=== PATIENT | male | born 2005 | race Two or more races ===

== ENCOUNTER 2024-10-12 11:43 | Emergency (ER) | payer MEDICAID, SELFPAY ==
[2024-10-12 11:51] VITALS: BP 120/64; PULSE 117; RESP 16; TEMP 37.4; O2SAT 98
--- NOTE | 2024-10-12 12:22 | XR_ITS ---
Examination: CT abdomen and pelvis without contrast. Coronal 3-D reconstructions. Sagittal 2-D reconstructions. Date and time of exam:October 12, 2024 1246 hours INDICATIONS: Left lower abdominal pain onset today CTDI: vol (mGy): 7.03 DLP: (mGycm): 447 Technique: Axial images of the abdomen have been obtained, 3 mm slice thickness Intravenous contrast material has not been administered. Low dose protocols were performed. One or more of the following dose reduction techniques were used; automated exposure control, adjustment of the mA and/or KV according to patient size, use of iterative reconstruction technique. Findings: No focal liver or splenic lesions No gallstones No pancreatic or adrenal mass No renal or ureteral calculi, no hydronephrosis Aorta normal size Normal appendix No bowel obstruction No diverticulitis Air fluid level above the urinary bladder which may be in a bowel loop, axial image 204 Bladder intact IMPRESSION: Recommend repeating the study with intravenous and oral contrast to assess air-fluid level posterior and above the urinary bladder on axial image 204, poorly visualized
--- NOTE | 2024-10-12 12:22 | PD.EDRME ---
Rapid Medical Screening Exam E Arrival date/time: 10/12/24 11:43 19-year-old male with no known medical history presents to the emergency room with a chief complaint of 8 out of 10 left lower quadrant abdominal pain and tenderness, diarrhea x 2 days I have greeted and performed a focused initial assessment of this patient. A comprehensive ED assessment and evaluation of the patient, analysis of all test results, and completion of the medical decision making process will be conducted by additional ED providers. Chief Complaint: Abdominal Pain Vital signs: Vital Signs Temperature 99.3 F 10/12/24 11:51 Pulse Rate 117 H 10/12/24 11:51 Respiratory Rate 16 10/12/24 11:51 Blood Pressure 120/64 10/12/24 11:51 Pulse Oximetry (%) 98 10/12/24 11:51 Oxygen Delivery Method Room Air 10/12/24 11:51 Vital signs reviewed by provider: Yes
[2024-10-12 12:24] VITALS: BMI 23.6
[2024-10-12 12:39] LABS: Basophils % (Auto) 0 % (0-2.5); Eosinophils % (Auto) 0 % (0-10); Hematocrit 45.9 % (41.0-53.0); Hemoglobin 15.8 g/dL (13.5-16.0); Immature Granulocytes % (Auto) 0 % (0-0); Immature Granulocytes Auto 0.04 Thou/mm3 (0.00-0.00); Lymphocytes # (Auto) 1.3 Thou/mm3 (1.0-4.8); Lymphocytes % (Auto) 12 % (10-50); Mean Corpuscular HGB Conc 34.4 g/dl (31.0-37.0); Mean Corpuscular Hemoglobin 29.3 pg (25.0-35.0); Mean Corpuscular Volume 85 fL (80-100); Monocytes # (Auto) 0.9 Thou/mm3 (0.0-0.8); Monocytes % (Auto) 8 % (0-12); Neutrophils # (Auto) 8.5 Thou/mm3 (1.8-7.7); Neutrophils % (Auto) 79 % (37-80); Nucleated Red Blood Cell % 0 /100 WBC (0); Platelet Count 308 Thou/mm3 (140-440); RDW Standard Deviation 36.8 fL (35.1-43.9); White Blood Count 10.7 Thou/mm3 (3.8-10.6)
[2024-10-12 13:09] LABS: Alanine Aminotransferase 8 U/L (10-49); Albumin/Globulin Ratio 1.6 (1.2-2.2); Alkaline Phosphatase 128 U/L (46-116); Anion Gap 8 (7-16); Aspartate Amino Transferase 12 U/L (0-34); BUN/Creatinine Ratio 15 Ratio (12-20); Bilirubin,Total 1.1 mg/dL (0.3-1.2); Blood Urea Nitrogen 16 mg/dL (9-23); Calcium 9.9 mg/dL (8.3-10.6); Calcium (Corrected) 9.9 mg/dL (8.5-10.1); Carbon Dioxide 26.3 mMol/L (20.0-31.0); Chloride 103 mMol/L (98-107); Creatinine (Component) 1.1 mg/dL (0.6-1.3); Estimated Creatinine Clearance 123.5 mL/min (>60); Globulin 3.2 gm/dL (2.3-3.5); Glucose 99 mg/dL (74-106); Lipase 38 U/L (12-53); Osmolality,Calculated 275 (275-295); Potassium 4.3 mMol/L (3.4-5.1); Sodium 137 mMol/L (136-145); Total Protein 8.2 gm/dL (5.7-8.2); eGFR > 60 See Note
[2024-10-12 14:38] LABS: Collection Type, Urine Clean Catch
[2024-10-12 14:48] LABS: Bacteria,Urine Rare; Bilirubin,Urine Negative (Negative); Blood,Urine Trace (Negative); Clarity,Urine Clear (Clear/Hazy); Color,Urine Yellow (Lt Yel-Yel); Glucose, Urine Negative (Negative); Ketones,Urine Negative (Negative); Leukocyte Esterase,Urine Negative (Negative); Nitrite,Urine Negative (Negative); Protein,Urine Trace (Neg - Trace); RBC,Urine 6 /hpf (0-3); Specific Gravity,Urine 1.035 (1.001-1.035); Squamous Epithelial Cell,Urine 1 /hpf (0-5); Urobilinogen,Urine Negative mg/dL (0.0-1.0); WBC,Urine 2 /hpf (0-5)
--- NOTE | 2024-10-12 15:56 | EDNOTE_ITS ---
ED General RME/HPI General Chief complaint: Abdominal Pain Stated complaint: ABDOMINAL PAIN X 0200AM Time Seen by Provider: 10/12/24 13:32 Arrival date/time: 10/12/24 11:43 CC: Abdominal pain HPI abrupt onset at 2 AM this morning just left of the umbilicus. The patient states he had multiple episodes of diarrhea from that point on until approximately 4 hours ago. Patient denies fever chills shortness of breath difficulty breathing headache nausea or vomiting. Patient states he has similar episode 1 month ago which spontaneously resolved and he was at the time waiting in the waiting ER and decided to leave because the spontaneous resolution. He says this episode was worse. RME / HPI RME / HPI narrative: 10/12/24 11:43 19-year-old male with no known medical history presents to the emergency room with a chief complaint of 8 out of 10 left lower quadrant abdominal pain and tenderness, diarrhea x 2 days I have greeted and performed a focused initial assessment of this patient. A comprehensive ED assessment and evaluation of the patient, analysis of all test results, and completion of the medical decision making process will be conducted by additional ED providers. Related Data Allergies Allergy/AdvReac Type Severity Reaction Status Date / Time No Known Allergies Allergy Verified 10/12/24 11:46 Review of Systems Review of Systems Narrative Review of Systems: GEN: No fever, no chills, no weight loss EYES: No discharge, no visual changes, no pain HEENT: No ear pain, no congestion, no sore throat PULM: No shortness of breath, no cough, no congestion CV: No chest pain, no dyspnea on exertion, no palpitations GI: No nausea, no vomiting, + diarrhea, + pain, no constipation : No frequency, no urgency, no dysuria MUSC/SKEL: No joint pain, no back pain SKIN: No rash PSYCH: No hallucinations, no depression HEME/LYMPH: No easy bleeding or bruising tendencies NEURO: No weakness, no headache ED Exam Narrative Physical exam: [General: Not in any acute distress Head normocephalic HEENT: Within acceptable limits Neck is supple nontender Chest equal chest rise nontender to palpation Respiratory: Clear to auscultation no wheezes crackles or rubs CV: Rate rhythm is regular no murmurs rubs or clicks Abdomen is soft nontender with deep palpation no reflexive guarding rebound tenderness in the periumbilical region left lower right lower or in the upper quadrants. No masses positive bowel sounds all 4 quadrants Back: No CVA tenderness no spinous process tenderness from cervical spine thoracic and lumbar spine Skin: Intact no petechiae rash induration ulceration or crepitus Extremities: Moving all extremity against resistance cap refill less than 2 seconds neurosensory intact Neuro: Awake alert oriented x3 Glascow coma 15 no focal deficits] Course Course Course Narrative: Patient's case discussed with Dr. Sy given prior to discharge Quality Measures VTE prophylaxis Orders Category Date Time Status CT abdomen pelvis wo con Stat Exams 10/12/24 12:22 Completed CBC Stat Lab 10/12/24 12:28 Completed CMP [Comprehensive Metabolic Panel] Stat Lab 10/12/24 12:28 Completed Lipase Stat Lab 10/12/24 12:28 Completed UA [Urinalysis] Stat Lab 10/12/24 14:29 Completed Urine Culture Stat Lab 10/12/24 14:29 Received HYDROcodone*/APAP 5/325 [[place] 5/325] Med 10/12/24 12:20 Discontinued 1 tab PO X1 ONE Vital Signs Vital signs: Vital Signs Temperature 99.3 F 10/12/24 11:51 Pulse Rate 117 H 10/12/24 11:51 Respiratory Rate 16 10/12/24 11:51 Blood Pressure 120/64 10/12/24 11:51 Pulse Oximetry (%) 98 10/12/24 11:51 Oxygen Delivery Method Room Air 10/12/24 11:51 [facility] Patient data External records reviewed:: [facility] previous records Clinical information provided by:: patient Social determinants that could affect healthcare access:: none Patient has the following chronic illnesses:: None How is presenting disease/condition affected by chronic disease/condition?: u neffected by Evaluation data The following diagnostics were reviewed and interpreted by me:: lab results and radiology exam(s) Lab and/or radiology exams considered but not ordered:: CBC shows no significant leukocytosis anemia thrombocytopenia CMP shows no significant electrolyte imbalances renal impairment transaminitis or T. bili elevation Urine is negative CT shows a possible air-fluid level above the bladder. Interpretation Summary: All symptoms have resolved the patient is not in any acute distress denies any fever chills shortness of breath laboratory results are wholly unremarkable. Patient has a benign abdominal exam few that the CT read is commiserate with patient's clinical presentation. Patient advised to follow-up with primary care return the emergency room if there are worsening symptoms Medications Medications considered but not ordered:: None Medication administrations:: Medication Administration History Discontinued Medications Hydrocodone Bitart/Acetaminophen (Hydrocodone/Apap 5/325 Tablet) 1 tab PO X1 ONE Stop: 10/12/24 12:21 Last Admin: 10/12/24 12:53 Dose: Not Given Documented By: GM Non-Admin Reason: Patient Refused None Consultations Consultation(s) initiated? (list below): No Diagnosis Differential Diagnosis ED Complaint MDM: Nausea vomiting diarrhea electrolyte imbalance Most likely diagnosis given after review of the tests above:: Nausea vomiting diarrhea Admission Indicated Admission indicated?: not indicated Explain why admission is indicated or not indicated:: None Admission Request Was there a request for admission?: No Disposition Plan Disposition Plan: Discharge Discharge Attestation Discharge Attestation: The patient and all family members were given an opportunity to ask questions and understood the discharge instructions. Discharge instructions specifically effects, indications for sooner follow up or return to the emergency department, and the expected course of current diagnosis. Patient condition: Stable Medical Decision Making Differential Diagnosis Differential Diagnosis: Nausea vomiting diarrhea electrolyte imbalance Lab Data 10/12/24 12:28 10/12/24 12:28 Labs: Lab Results 10/12/24 10/12/24 Range/Units 12:28 14:29 WBC 10.7 H (3.8-10.6) Thou/mm3 RBC 5.40 (4.50-5.90) Miln/mm3 Hgb 15.8 (13.5-16.0) g/dL Hct 45.9 (41.0-53.0) % MCV 85 (80-100) fL MCH 29.3 (25.0-35.0) pg MCHC 34.4 (31.0-37.0) g/dl RDW Std Deviation 36.8 (35.1-43.9) fL Plt Count 308 (140-440) Thou/mm3 Neut % (Auto) 79 (37-80) % Lymph % (Auto) 12 (10-50) % [place] % (Auto) 8 (0-12) % Eos % (Auto) 0 (0-10) % Baso % (Auto) 0 (0-2.5) % Neut # (Auto) 8.5 H (1.8-7.7) Thou/mm3 Lymph # (Auto) 1.3 (1.0-4.8) Thou/mm3 [place] # (Auto) 0.9 H (0.0-0.8) Thou/mm3 Eos # (Auto) 0.0 (0.0-0.5) Thou/mm3 Baso # (Auto) 0.0 (0.0-0.2) Thou/mm3 Immature Gran # (Auto) 0.04 H (0.00-0.00) Thou/mm3 Absolute Nucleated RBC 0.00 (0.00-0.00) Thou/mm3 Immature Gran % 0 (0-0) % Nucleated RBC % 0 (0) /100 WBC Sodium 137 (136-145) mMol/L Potassium 4.3 (3.4-5.1) mMol/L Chloride 103 (98-107) mMol/L Carbon Dioxide 26.3 (20.0-31.0) mMol/L Anion Gap 8 (7-16) BUN 16 (9-23) mg/dL Creatinine 1.1 (0.6-1.3) mg/dL Estim Creat Clear Calc 123.5 (>60) mL/min eGFR > 60 (60 - ) See Note BUN/Creatinine Ratio 15 (12-20) Ratio Glucose 99 (74-106) mg/dL Calculated Osmolality 275 (275-295) Calcium 9.9 (8.3-10.6) mg/dL Corrected Calcium 9.9 (8.5-10.1) mg/dL Total Bilirubin 1.1 (0.3-1.2) mg/dL AST 12 (0-34) U/L ALT 8 L (10-49) U/L Alkaline Phosphatase 128 H (46-116) U/L Total Protein 8.2 (5.7-8.2) gm/dL Albumin 5.0 (3.5-5.0) gm/dL Globulin 3.2 (2.3-3.5) gm/dL Albumin/Globulin Ratio 1.6 (1.2-2.2) Lipase 38 (12-53) U/L Ur Collection Type Clean Catch Urine Color Yellow (Lt Yel-Yel) Urine Clarity Clear (Clear/Hazy) Urine pH 6.0 (5.0-7.0) Ur Specific [place] 1.035 (1.001-1.035) Urine Protein Trace (Neg - Trace) Urine Glucose (UA) Negative (Negative) Urine Ketones Negative (Negative) Urine Blood Trace (Negative) Urine Nitrite Negative (Negative) Urine Bilirubin Negative (Negative) Urine Urobilinogen (Auto) Negative (0.0-1.0) mg/dL Ur Leukocyte Esterase Negative (Negative) Urine RBC 6 H (0-3) /hpf Urine WBC 2 (0-5) /hpf Ur Squamous Epith Cells 1 (0-5) /hpf Urine Bacteria Rare (None) Discharge Plan Plan Patient Disposition: HOME (Self Care) Patient condition on transfer: Stable Prescriptions/Referrals Referrals: Lev Finn MD [Physician] - In 1 week No Primary/Family,Physician [Primary Care Provider] - In 1 week Problem List Clinical Impression: Nausea vomiting and diarrhea, Abdominal pain Patient/Caregiver Discharge Instructions Education Materials: Abdominal Pain, ED Vomiting and Diarrhea ... Print Language: Slovenian Stand Alone Forms: Vickie Award Info., Work/School Release, Patient Portal Info Letter PA/LIZZIE Supervising Physician HILDA/LIZZIE Supervising Physician: Jose Luis Heck ENP
== END 2024-10-12 16:30 | disposition home or self-care (01) ==
PROVIDERS: Nurse Practitioner Family; Emergency Provider Emergency Medicine
DX: R10.9 Unspecified abdominal pain (principal); R11.2 Nausea with vomiting, unspecified; R19.7 Diarrhea, unspecified
CPT/HCPCS: 36415; 74176; 80053; 81001; 83690; 85025; 87086; 99284